=== PATIENT | male | born 1965 | race Caucasian/White ===

== ENCOUNTER → 2020-05-04 11:51 | Outpatient (CLI) | payer OTHER, SELFPAY ==
--- NOTE | ~2020-05-04 | XR_ITS ---
XR hip BI 2V w AP pelvis DATE: 05/04/2020 12:15 INDICATION: Bilateral hip pain TECHNIQUE: AP and lateral views of each hip COMPARISON: None FINDINGS: No fracture or dislocation, avascular necrosis or bone destruction of either hip is evident . Hip joint spaces are symmetric and well preserved. The pubic symphysis and sacroiliac joints are in tact. IMPRESSION: No significant abnormality Reviewed, dictated and finalized at location A. [employer] [employer] IMPRESSION: No significant abnormality
== END ==
DX: M25.551 Pain in right hip (principal); M25.552 Pain in left hip
CPT/HCPCS: 73521

== ENCOUNTER → 2020-09-19 13:50 | Outpatient (CLI) | payer OTHER, SELFPAY ==
--- NOTE | ~2020-09-19 | XR_ITS ---
XR shoulder LT min 2V 09/19/2020 14:27 Indication: Left shoulder pain Procedure: 4 views left shoulder Comparison: No prior studies for comparison. Findings: No fracture, subluxation or dislocation. No significant soft tissue abnormality. No foreign body. No significant soft tissue abnormality. No foreign body. Impression: 1: No significant bone or joint abnormality. Reviewed, dictated and finalized at location B. Impression: 1: No significant bone or joint abnormality.
== END ==
PROVIDERS: Visit Provider Internal Medicine
DX: M25.512 Pain in left shoulder (principal)
CPT/HCPCS: 73030

== ENCOUNTER → 2022-01-16 07:40 | Outpatient (CLI) | payer OTHER, SELFPAY ==
--- NOTE | ~2022-01-16 | MR_ITS ---
EXAMINATION: MR shoulder LT wo con DATE: 01/16/2022 08:21 INDICATION: Back left shoulder pain TECHNIQUE: Magnetic resonance imaging (MRI) of the left shoulder was performed without intravenous co ntrast. Sequences included axial PD-weighted FS FSE, coronal oblique PD-weighted FS FSE, coronal obli que T2-weighted FS FSE, sagittal PD-weighted FS FSE, and sagittal T1-weighted SE. COMPARISON: None. FINDINGS: Coracoacromial arch: The acromion undersurface is curved in morphology with small anterior subacromial spur and minimal an terior hook (type II-III). The coracoacromial ligament is normal. Mild acromioclavicular osteoarthrit is. Rotator cuff: Mild infraspinatus tendinopathy. There is a longitudinal split tear along the middle facet footplate of the anterior infraspinatus tendon with thin linear fluid signal stenting from the articular surfac e through at least two thirds of the tendon thickness but which appears to spare the bursal surface o f the tendon. The supraspinatus and teres minor tendons are normal. Mild subscapularis tendinopathy w ith partial thickness tear involving a small portion of the superolateral aspect of the lesser tubero sity footplate and small associated split tear which extends 12 mm medially from the rim of the inter tubercular groove with overlying intact bursal side of the tendon which remains contiguous with the i ntact transverse humeral ligament. Normal rotator cuff muscle bulk and signal. Biceps tendon, glenoid labrum and glenohumeral cartilage: The long head of the biceps tendon is partially subluxed across the medial rim of the cephalad aspect of the intertubercular groove across the subscapularis tendon tear defect. There is underlying cysti c change along the lateral margin of the lesser tuberosity/medial wall of the intertubercular groove. There is moderate tendinopathy with partial-thickness tear at the junction of the intra-articular an d extra-articular portions of the long head biceps tendon. There is a tear at the base of the 7:00-o' clock position of the posterior inferior glenoid labrum. Partial-thickness cartilage loss with smooth chondral surface and without degenerative subchondral changes along the inferomedial aspect of the h umeral head and central aspect of the glenoid. Tiny marginal osteophytes are present along the barrel charrer ior rim of the glenoid. Fluid: Small amount of fluid in the long head biceps tendon sheath which is disproportionate to the physiolo gic amount fluid in the glenohumeral joint consistent with bicipital tenosynovitis. No loose osteocho ndral bodies. Slight increase in fluid signal along the subacromial/subdeltoid bursa consistent with minimal bursitis. Bones: Normal marrow signal with no edema, fracture or abnormal marrow replacing process. Cystic change evens g the lesser tuberosity. IMPRESSION: 1. Mild glenohumeral osteoarthritis with small tear at the base of the posterior inferior glenoid lab rum. 2. Mild subscapularis tendinopathy with partial-thickness tear involving a small portion of the infer olateral aspect of the lesser tuberosity insertion and allowing medial subluxation of the long head b iceps tendon across the medial rim of the cephalad aspect of the intertubercular groove. 3. Mild bicipital tenosynovitis with moderate tendinopathy and partial-thickness tear at the junction of the internal extra-articular portions of the long head biceps tendon. 4. Mild infraspinatus tendinopathy with small thin but deep articular sided partial thickness split t ear at the middle facet footplate. 5. Mild acromioclavicular osteoarthritis with minimal underlying subacromial/subdeltoid bursitis. Reviewed, dictated and finalized at location A.
== END ==
PROVIDERS: PCP Internal Medicine; Visit Provider Physician Assistant
DX: M19.012 Primary osteoarthritis, left shoulder (principal); M75.21 Bicipital tendinitis, right shoulder
CPT/HCPCS: 73221